=== PATIENT | male | born 1990 | race Caucasian/White ===

== ENCOUNTER 2020-06-15 17:44 | Emergency (ER) | payer OTHER | END 2020-06-15 19:33 | disposition home or self-care (01) | LOC: ERS 17:44 | DX: S59.002D Unspecified physeal fracture of lower end of ulna, left arm, subsequent encounter for fracture with routine healing (principal); F17.210 Nicotine dependence, cigarettes, uncomplicated; Y04.0XXD Assault by unarmed brawl or fight, subsequent encounter | CPT/HCPCS: 29125 ==